=== PATIENT | female | born 1940 | race Caucasian/White ===

== ENCOUNTER 2017-10-28 15:30 | Outpatient (RCR) | payer MEDICARE, OTHER ==
[~2017-10-28 15:30] MED LIST: ATORVASTATIN; AVALIDE 12.5 MG1 TA1 PO; AVALIDE PO; CALCIUM + D 6001 TA1 PO; CHROMIUM PO; COUMADIN 6MG6 MG/TAB PO; COUMADIN6 MG PO; FOLIC ACID 40400 MCG PO; IRON325 M1 PO; LIPITOR 10MG10 MG PO; MULTIPLE VITAMI1 CAP PO; VITAMIN C500 MG PO
== END 2017-11-08 | disposition home or self-care (01) ==
LOC: WSPT
DX: M41.86 Other forms of scoliosis, lumbar region (principal); M46.86 Other specified inflammatory spondylopathies, lumbar region; Z96.642 Presence of left artificial hip joint
CPT/HCPCS: G8978-GP; G8979-GP; G8980-GP

== ENCOUNTER → 2017-12-15 | Outpatient (CLI) | payer MEDICARE, OTHER | LOC: COL.VAS 10:53 | DX: M79.662 Pain in left lower leg (principal) ==